=== PATIENT | female | born 1980 | race Caucasian/White ===

== ENCOUNTER → 2020-04-20 | Outpatient (CLI) | payer MEDICARE, OTHER | LOC: CT 15:21 | DX: R53.83 Other fatigue (principal); R42 Dizziness and giddiness; Z87.820 Personal history of traumatic brain injury | CPT/HCPCS: 70450 ==

== ENCOUNTER → 2020-05-27 | Outpatient (CLI) | payer MEDICARE, OTHER | LOC: HEART 5 14:57 | DX: R00.0 Tachycardia, unspecified (principal) ==